=== PATIENT | male | born 1975 | race Caucasian/White ===

== ENCOUNTER 2017-06-01 10:43 | Emergency (ER) | payer MEDICAID, OTHER ==
[~2017-06-01] VITALS: Ht 177.8 cm; Wt 100.0 kg
[~2017-06-01 10:43] MED LIST: CYCL10TA PO; IBUP-232 PO
[2017-06-01 10:46] VITALS: BP 115/75; PULSE 84; RESP 13; TEMP 99.2; O2SAT 97
[2017-06-01] MEDS ORDERED: MUPI2OIN TOPICAL (10:51)
[2017-06-01] MEDS ORDERED: BACT800T5 PO (10:51)
[2017-06-01 11:50] LABS: AUTOMATED NEUTROPHIL # 7.6 TH/MM3 (1.8-7.7); BASOPHIL % 0.4 % (0.0-2.0); EOSINOPHIL # 0.5 TH/MM3 (0-0.4); EOSINOPHIL % 3.9 % (0.0-4.0); HEMATOCRIT 45.9 % (39.0-51.0); HEMOGLOBIN 15.7 GM/DL (13.0-17.0); LYMPH % 25.1 % (9.0-44.0); MEAN CELL VOLUME 90.8 FL (80.0-100.0); MEAN CORPUSCULAR HGB CONC 34.1 % (32.0-36.0); MEAN PLATELET VOLUME 8.2 FL (7.0-11.0); MONO % 6.5 % (0.0-8.0); MONOCYTE # 0.8 TH/MM3 (0-0.9); NEUT % 64.1 % (16.0-70.0); PLATELET COUNT 308 TH/MM3 (150-450); RED BLOOD COUNT 5.06 MIL/MM3 (4.50-5.90); WHITE BLOOD COUNT 11.9 TH/MM3 (4.0-11.0)
[2017-06-01 12:09] LABS: ALT (GPT) 24 U/L (12-78); AST (GOT) 16 U/L (15-37); BICARBONATE 26.2 MEQ/L (21.0-32.0); BLOOD UREA NITROGEN 11 MG/DL (7-18); CALCIUM 8.5 MG/DL (8.5-10.1); CHLORIDE 105 MEQ/L (98-107); CREATININE 1.04 MG/DL (0.60-1.30); GLOMERULAR FILTRATION RATE 79 ML/MIN (>89); GLUCOSE,RANDOM 89 MG/DL (74-106); SODIUM (NA) 136 MEQ/L (136-145)
[2017-06-01 12:11] LABS: ALKALINE PHOSPHATASE 88 U/L (45-117); TOTAL BILIRUBIN ADULT 0.4 MG/DL (0.2-1.0); TOTAL PROTEIN 8.2 GM/DL (6.4-8.2)
[2017-06-01] MEDS ORDERED: CLINDAMYCIN 600 MG/NS PREMIX 50 ML IV ONE (12:15)
[2017-06-01] MEDS ORDERED: CLIN300C5 PO (13:31)
--- NOTE | 2017-06-01 13:31 | PD ---
HPI Chief Complaint: Skin Problem Time Seen by Provider: 10:56 Travel History International Travel<30 days: No Contact w/Intl Traveler<30days: No Traveled to known affect area: No History of Present Illness HPI Patient is a 41 year old male who comes in complaining of an infection to the inside of his right thigh. He says that he thinks he may have been bit by a spider. He says it started about 4 days ago and has been getting worse. He went to an urgent care Friday and was prescribed Bactrim. He says he has taken it, but the pain seems to be getting worse. He denies any fever or chills. He denies any leakage of fluid from the site. Severity is moderate. PFSH Past Medical History Blood Disorders: No Diminished Hearing: No Tetanus Vaccination: < 5 Years Social History Alcohol Use: Yes (12PACK WEEKLY) Tobacco Use: Yes (1 PPD) Substance Use: Yes (marijuana) Allergies-Medications (Allergen,Severity, Reaction): Coded Allergies: No Known Allergies (Verified Allergy, Severe, 11/19/16) NKA Reported Meds & Prescriptions Reported Meds & Active Scripts Active Reported Bactrim DS (Sulfamethoxazole-Trimethoprim) 800-160 Mg Tab 1 Tab PO BID Mupirocin Topical (Mupirocin) 2 % Oint 1 Applic TOPICAL BID Review of Systems Except as stated in HPI: all other systems reviewed are Neg General / Constitutional: No: Fever, Chills HENT: No: Headaches, Lightheadedness Cardiovascular: No: Chest Pain or Discomfort Respiratory: No: Shortness of Breath Gastrointestinal: No: Nausea, Vomiting Musculoskeletal: Positive: Pain Skin: Positive Lesions Neurologic: No: Weakness, Dizziness Physical Exam Narrative GENERAL: Awake and alert, in no acute distress. SKIN: 5cm area of erythema to the right inner thigh. Small area of induration, no fluctuance. No crepitus. HEAD: Atraumatic. Normocephalic. EYES: Pupils equal and round. No scleral icterus. ENT: Mucous membranes pink and moist. NECK: Trachea midline. No JVD. CARDIOVASCULAR: Regular rate and rhythm. No murmur appreciated. RESPIRATORY: No accessory muscle use. Clear to auscultation. Breath sounds equal bilaterally. MUSCULOSKELETAL: No obvious deformities. No clubbing. No cyanosis. No edema. NEUROLOGICAL: Awake and alert. No obvious cranial nerve deficits. Motor grossly within normal limits. Normal speech. PSYCHIATRIC: Appropriate mood and affect; insight and judgment normal. Data Data Last Documented VS Vital Signs Date Time Temp Pulse Resp B/P (MAP) Pulse Ox O2 Delivery O2 Flow Rate FiO2 06/01/17 10:46 99.2 84 13 115/75 (88) 97 Orders Orders Iv Access Insert/Monitor (06/01/17 11:04) Complete Blood Count With Diff (06/01/17 11:04) Comprehensive Metabolic Panel (06/01/17 11:04) Clindamycin 600 Mg/Ns Premix (Cleocin 60 (06/01/17 12:15) Labs Laboratory Tests Test 06/01/17 11:15 White Blood Count 11.9 TH/MM3 Red Blood Count 5.06 MIL/MM3 Hemoglobin 15.7 GM/DL Hematocrit 45.9 % Mean Corpuscular Volume 90.8 FL Mean Corpuscular Hemoglobin 31.0 PG Mean Corpuscular Hemoglobin Concent 34.1 % Red Cell Distribution Width 13.0 % Platelet Count 308 TH/MM3 Mean Platelet Volume 8.2 FL Neutrophils (%) (Auto) 64.1 % Lymphocytes (%) (Auto) 25.1 % Monocytes (%) (Auto) 6.5 % Eosinophils (%) (Auto) 3.9 % Basophils (%) (Auto) 0.4 % Neutrophils # (Auto) 7.6 TH/MM3 Lymphocytes # (Auto) 3.0 TH/MM3 Monocytes # (Auto) 0.8 TH/MM3 Eosinophils # (Auto) 0.5 TH/MM3 Basophils # (Auto) 0.0 TH/MM3 CBC Comment DIFF FINAL Differential Comment Blood Urea Nitrogen 11 MG/DL Creatinine 1.04 MG/DL Random Glucose 89 MG/DL Total Protein 8.2 GM/DL Albumin 4.0 GM/DL Calcium Level 8.5 MG/DL Alkaline Phosphatase 88 U/L Aspartate Amino Transf (AST/SGOT) 16 U/L Alanine Aminotransferase (ALT/SGPT) 24 U/L Total Bilirubin 0.4 MG/DL Sodium Level 136 MEQ/L Potassium Level 4.1 MEQ/L Chloride Level 105 MEQ/L Carbon Dioxide Level 26.2 MEQ/L Anion Gap 5 MEQ/L Estimat Glomerular Filtration Rate 79 ML/MIN MDM Medical Decision Making Medical Screen Exam Complete: Yes Emergency Medical Condition: Yes Differential Diagnosis Cellulitis versus abscess versus insect bite Narrative Course Patient is a 41-year-old male who comes in complaining of a painful infection to his right inner thigh. Exam shows an area of erythema, there is no fluctuance. Patient has a marking around the outside of the area of redness, and this seems to be improving based on prior marking. I did put the ultrasound probe on his leg that showed no drainable fluid collection. Labs sent show a white blood cell count of 11.1, no other acute abnormalities. Patient given a dose of clindamycin. I will change his antibiotics to clindamycin. He is advised to follow-up with a primary doctor. Advised to return to the ED as needed for any worsening symptoms. Diagnosis Primary Impression: Cellulitis Qualified Codes: L03.115 - Cellulitis of right lower limb Patient Instructions: Cellulitis (ED), General Instructions Additional Instructions: Stop the Bactrim and take the clindamycin. Follow-up with a primary care doctor. Apply warm compresses several times per day to the area. Return to the ED as needed for any worsening symptoms. Scripts Clindamycin (Clindamycin) 300 Mg Cap 600 MG PO Q8H for Infection for 7 Days, #42 CAP 0 Refills Prov: Norma Krause MD 06/01/17 Disposition: 01 DISCHARGE HOME Condition: Stable Norma Krause MD Jun 01, 2017 13:31
== END 2017-06-01 14:05 | disposition home or self-care (01) ==
LOC: NEPD 10:43
DX: L03.115 Cellulitis of right lower limb (principal); F17.200 Nicotine dependence, unspecified, uncomplicated; F12.90 Cannabis use, unspecified, uncomplicated
CPT/HCPCS: 80053; 85025; 99283